=== PATIENT | female | born 1945 | race Caucasian/White ===

== ENCOUNTER 2016-11-03 06:57 | Day surgery (SDC) | payer MEDICARE, OTHER ==
--- NOTE | ~2016-11-03 | EGD ---
EGD REPORT [facility] [address] [place] [place]. [address] NAME: JAYA CASTANON : [birth year] STATUS : REG [facility]#: [id number] AGE: 71 ADM/REG DATE : 11/03/16 MR#: [id number] REPORT SERV DATE: 11/03/16 DICTATED BY: LATIA RUFFIN DATE: 11/03/16 REPORT STATUS : Draft TRANSCRIBED BY: [facility] DATE: 11/03/16 Endoscopy Center Patient Name: Jaya Castanon Date of : 1945 Attending MD: LATIA RUFFIN, Procedure Date No Time: 11/03/2016 Procedure: Upper Device-Assisted Enteroscopy without Fluoroscopy Indications: Iron deficiency anemia Referring MD: Ted Mnoroe Medicines: Monitored Anesthesia Care Complications: No immediate complications. Estimated blood loss: None. Procedure: Pre-Anesthesia Assessment: - ASA Grade Assessment: III - A patient with severe systemic disease. After obtaining informed consent, the endoscope was passed under direct vision using the balloon-assisted technique. Throughout the procedure, the patient's blood pressure, pulse, and oxygen saturations were monitored continuously. The SIF [id number] [id number] was introduced through the mouth and advanced to the mid-jejunum. The upper device-assisted enteroscopy was accomplished without difficulty. The patient tolerated the procedure well. Findings: The esophagus was normal. The stomach was normal. The examined duodenum was normal. There was no evidence of significant pathology in the entire examined portion of jejunum. Impression: - Normal esophagus. - Normal stomach. - Normal examined duodenum. - The examined portion of the jejunum was normal. Recommendation: - Return to previous diet. - Continue present medications. - Return to referring physician. Procedure Code(s): --- Professional --- 46108, Small intestinal endoscopy, enteroscopy beyond second portion of duodenum, not including ileum; diagnostic, with or without collection of specimen(s) by brushing or washing (separate procedure) EGD REPORT [facility] [address] [place]. [address] NAME: JAYA CASTANON : [birth year] STATUS : REG [facility] PAT#: [id number] AGE: 71 ADM/REG DATE : 11/03/16 MR#: [id number] REPORT SERV DATE: 11/03/16 DICTATED BY: LATIA RUFFIN DATE: 11/03/16 REPORT STATUS : Draft TRANSCRIBED BY: [employer] DATE: 11/03/16 Diagnosis Code(s): --- Professional --- D50.9, Iron deficiency anemia, unspecified CPT copyright 2013 [employer]. All rights reserved. The codes documented in this report are preliminary and upon swimming pool servicer review may be revised to meet current compliance requirements. LATIA RUFFIN, 11/03/2016 9:32 AM Number of Addenda: 0 Note Initiated On: 11/03/2016 9:11 AM [address] [place] [address]
[~2016-11-03 06:57] MED LIST: AMIT100 PO; ARICEPT10 PO; CELEXA20 PO; COREG25 PO; DITRO5 PO; GLUCOPHAGE1000 MG PO; GLUCOTRO10 PO; JANUVIA50 PO; MULTI-VIT HP PO; OMNICEF300 PO; PRILO PO; PRIN10 PO; TOUJEO SC; VITAMIN D31000 UNIT PO; ZOCOR40 PO
== END 2016-11-03 23:59 | disposition home health service (06) ==
LOC: DMU 06:57
PROVIDERS: Internal Medicine Gastroenterology
PROC: 0D9 Gastrointestinal System, Drainage (ICD-10-PCS; principal; 2016-11-03 10:00)
DX: D50.9 Iron deficiency anemia, unspecified (principal); I11.0 Hypertensive heart disease with heart failure; I50.9 Heart failure, unspecified; G47.33 Obstructive sleep apnea (adult) (pediatric); E11.9 Type 2 diabetes mellitus without complications; M06.9 Rheumatoid arthritis, unspecified; F03.90 Unspecified dementia, unspecified severity, without behavioral disturbance, psychotic disturbance, mood disturbance, and anxiety; E78.00 Pure hypercholesterolemia, unspecified; M81.0 Age-related osteoporosis without current pathological fracture; F41.9 Anxiety disorder, unspecified; F17.200 Nicotine dependence, unspecified, uncomplicated; Z99.89 Dependence on other enabling machines and devices; Z86.73 Personal history of transient ischemic attack (TIA), and cerebral infarction without residual deficits; Z88.8 Allergy status to other drugs, medicaments and biological substances; Z79.899 Other long term (current) drug therapy; Z79.4 Long term (current) use of insulin; Z90.49 Acquired absence of other specified parts of digestive tract; Z90.710 Acquired absence of both cervix and uterus; Z98.890 Other specified postprocedural states
CPT/HCPCS: 82962